=== PATIENT | male | born 1975 | race Caucasian/White ===

== ENCOUNTER 2022-08-05 13:43 | Outpatient (CLI) | payer BC, SELFPAY ==
[2022-08-05 17:58] LABS: Chloride* 110 mmol/L (96-114); Sodium* 142 mmol/L (135-149)
[2022-08-05 18:00] LABS: Cholesterol* 157 mg/dL (90-199); Creatinine* 0.8 mg/dL (0.5-1.5); Estimated Glomerular Filt Rate 110 ml/min
[2022-08-05 18:01] LABS: Blood Urea Nitrogen* 13 mg/dL (5-24); Carbon Dioxide* 25 mmol/L (20-32); Glucose* 92 mg/dL (60-115); Uric Acid* 8.2 mg/dL (2.2-8.4)
[2022-08-05 18:02] LABS: HDL Cholesterol* 38 mg/dL (>=40); LDL Cholesterol Calculated 26 mg/dL (<100)
[2022-08-05 18:04] LABS: Triglycerides* 466 mg/dL (40-149)
== END 2022-08-05 13:44 | disposition home or self-care (01) ==
PROVIDERS: PCP Family Medicine; Visit Provider Family Medicine
DX: Z00.00 Encounter for general adult medical examination without abnormal findings (principal); M10.9 Gout, unspecified; Z13.6 Encounter for screening for cardiovascular disorders
CPT/HCPCS: 80048; 80061; 84550

== ENCOUNTER 2025-04-07 10:32 | Outpatient (CLI) | payer BC, SELFPAY | END 2025-04-07 10:33 | disposition home or self-care (01) | PROVIDERS: PCP Family Medicine; Visit Provider Family Medicine | DX: Z13.9 Encounter for screening, unspecified (principal) | CPT/HCPCS: 80048; 80061; 85025; G0103 ==